=== PATIENT | female | born 2000 | race Caucasian/White ===

== ENCOUNTER 2021-12-03 10:12 | Emergency (ER) | payer BC, SELFPAY ==
[2021-12-03 10:20] VITALS: BP 134/90; PULSE 81; RESP 14; TEMP 36.9; O2SAT 100; BMI 22.3
--- NOTE | 2021-12-03 10:58 | ED_ITS ---
HPI - General Adult General Chief complaint: Ear/Nose/Throat Problem Stated complaint: Flu like symptoms Time Seen by Provider: 12/03/21 10:15 History of Present Illness HPI narrative: This 21-year-old female comes in reporting pain and redness behind her left ear. This is been present for about 5 days. She does not report any hearing changes. She does have some nasal congestion but no fevers or cough. She also stated that she has had some mild constipation lately and had 3 bowel movements recently with small harder stool. After 1 of these bowel movements she did wipe some blood on the toilet paper. Related Data Home Medications Medication Instructions Recorded Confirmed Oral control 12/03/21 dextroamphetamine-amphetamine ER PO 12/03/21 20 mg 24hr capsule,extend release escitalopram oxalate 10 mg tablet mg 12/03/21 Previous Rx's Medication Instructions Recorded amoxicillin 500 mg capsule 500 mg PO TID 10 days #30 caps 12/03/21 Allergies Allergy/AdvReac Type Severity Reaction Status Date / Time No Known Drug Allergies Allergy Verified 12/03/21 10:38 Review of Systems Status of ROS: Reports: 10 or more systems reviewed and unremarkable except as noted in History and below Narrative: Constitutional: No fevers, no weight gain or loss. Eyes: No discharge. No vision changes. HENT: No congestion, no sore throat. Redness and pain behind the left ear overlying the mastoid process. Cardiovascular: No chest pain, no palpitations. Respiratory: No shortness of breath, no wheezes, no cough. Gastrointestinal: No abdominal pain, no vomiting, no diarrhea. Genitourinary: No dysuria, no hematuria. She is currently menstruating Musculoskeletal: Normal range of motion. Skin: No rashes, no pruritis. Neurological: No dizziness, weakness, sensory change, speech change. Endo/Heme/Allergies: No bruising or bleeding. No polydipsia. Pysch: no suicidality, no anxiety, no insomnia. All other systems reviewed and are negative. PFSH PFS Social History Smoking Status: Never smoker How often do you have a drink containing alcohol: never AUDIT-C Alcohol total score: 0 Non-prescribed substance use: denies use Exam Narrative: Exam Narrative: Constitutional: Well-developed, well-nourished, no acute distress. HEENT: Normocephalic, atraumatic. Left tympanic membrane and canal appear normal. There is erythema without swelling in the posterior portion of the left external ear overlying the mastoid process. Neck: Normal range of motion. Nontender. Supple. Heart: Regular. No murmurs. Normal rate. Intact distal pulses. Lungs: Clear to auscultation. No chest discomfort. No wheezes, rhonchi, or rales. Abdomen: Normal bowel sounds. Nontender. No rebound tenderness. Genitalia: Deferred. Back: No midline tenderness. Normal range of motion. Extremities: Normal range of motion. No injury. Skin: Intact. No rash. Warm. No erythema or pallor. Neurologic: No altered sensation. No weakness. Alert and oriented. Psychiatric: No suicidality. No anxiety or depression. No insomnia. Nursing notes and vitals signs are reviewed. Const: Vital Signs, click to edit/add: Vital Signs - 24 hr 12/03/21 10:20 Temperature 98.4 F Pulse Rate [Pulse Oximeter] 81 Respiratory Rate 14 Blood Pressure [Ri ght Upper Arm] 134/90 H Pulse Oximetry 100 Oxygen Delivery Me thod Room Air Course Vital Signs Vital signs: Initial Vital Signs Temperature 98.4 F 12/03/21 10:20 Temperature Source Temporal Artery Scan 12/03/21 10:20 Pulse Rate 81 12/03/21 10:20 Respiratory Rate 14 12/03/21 10:20 Blood Pressure 134/90 H 12/03/21 10:20 Blood Pressure Mean 104 12/03/21 10:20 Blood Pressure Position Sitting 12/03/21 10:20 Pulse Oximetry 100 12/03/21 10:20 Oxygen Delivery Method 12/03/21 10:20 Vital Signs Temperature 98.4 F 12/03/21 10:20 Pulse Rate 81 12/03/21 10:20 Respiratory Rate 14 12/03/21 10:20 Blood Pressure 134/90 H 12/03/21 10:20 Pulse Oximetry 100 12/03/21 10:20 Oxygen Delivery Method 12/03/21 10:20 Temperature 98.4 F 12/03/21 10:20 Pulse Rate 81 12/03/21 10:20 Respiratory Rate 14 12/03/21 10:20 Blood Pressure 134/90 H 12/03/21 10:20 Pulse Oximetry 100 12/03/21 10:20 Oxygen Delivery Method 12/03/21 10:20 Medical Decision Making MDM Narrative Medical decision making narrative: This patient has pain behind the left ear as described above. She states that she had a cholesteatoma with surgery 3 or 4 months ago. This was on her right ear. She is following with a patient transition specialist. These symptoms on the left side and feel differently than the cholesteatoma. Her exam appears normal except for some erythema in the area described. This could be a cellulitis or possible mastoiditis. I did discuss lab and imaging options which the patient declined at this time in a process of shared decision making. She did receive a prescription for amoxicillin. As for the blood on the toilet paper, again the patient declined any further studies at this time. It seems more likely coming from an anal fissure or hemorrhoid as she has had some more difficult stools recently. She does not know of any family history of colon problems. I advised her to look for repeated blood. A colonoscopy or flexible sigmoidoscopy would be the best assessment for these findings especially if recurrent. Discharge Plan Discharge Clinical Impression: Cellulitis Patient Disposition: Home, Self-Care Condition: Stable Instructions: Cellulitis (ED) Additional Instructions: Take medication as prescribed. [facility]. If blood on the toilet paper is recurrent follow-up with primary physician or return to emergency department. Prescriptions: New amoxicillin 500 mg capsule 500 mg PO TID 10 Days Qty: 30 0RF No Action dextroamphetamine-amphetamine 20 mg capsule,extended release 24hr PO Label Comments: Take 1 capsule by mouth in the morning escitalopram oxalate 10 mg tablet Label Comments: Take 1 tablet by mouth daily; Take with one, 20 mg tablet for total dose of 30 mg daily Oral control Follow Up/Referrals: Dalia Mooney MD [Primary Care Provider] - Stand Alone Forms: [facility] Info Instructions
[2021-12-03 11:12] VITALS: BP 134/90; PULSE 81; RESP 14; TEMP 36.9
== END 2021-12-03 11:13 | disposition home or self-care (01) ==
PROVIDERS: Emergency Provider Emergency Medicine Emergency Medical Services; PCP Family Medicine
DX: H60.12 Cellulitis of left external ear (principal)
CPT/HCPCS: 99282; 99283; 99284

== ENCOUNTER 2021-12-19 15:34 | Emergency (ER) | payer BC, SELFPAY ==
[2021-12-19 15:37] VITALS: BP 132/89; PULSE 99; RESP 18; TEMP 36.8; O2SAT 98; BMI 22.6
--- NOTE | 2021-12-19 16:51 | ED.ABDPAIN ---
HPI - Abdominal Pain General Chief Complaint: Abdominal Pain Stated Complaint: Abdominal pain and constipation Time Seen by Provider: 12/19/21 16:37 History of Present Illness HPI narrative: This 21-year-old female comes in reporting crampy type abdominal pain over the past couple weeks. She states that she has had some constipation related to this. She states that her pain is more located in her lower abdomen when it occurs. She reports that the pain seems to be better when she is up and about and moving. She does report some increased urinary frequency. She wonders if she might be also. Related Data Home Medications Medication Instructions Recorded Confirmed Oral control 12/03/21 dextroamphetamine-amphetamine ER PO 12/03/21 20 mg 24hr capsule,extend release escitalopram oxalate 10 mg tablet mg 12/03/21 Previous Rx's Medication Instructions Recorded amoxicillin 500 mg capsule 500 mg PO TID 10 days #30 caps 12/03/21 ketorolac 10 mg tablet 10 mg PO Q8H 5 days #15 tabs 12/19/21 Allergies Allergy/AdvReac Type Severity Reaction Status Date / Time No Known Drug Allergies Allergy Verified 12/03/21 10:38 Review of Systems Status of ROS Reports: 10 or more systems reviewed and unremarkable except as noted in History and below Narrative Constitutional: No fevers, no weight gain or loss. Eyes: No discharge. No vision changes. HENT: No congestion, no sore throat, no ear pain. Cardiovascular: No chest pain, no palpitations. Respiratory: No shortness of breath, no wheezes, no cough. Gastrointestinal: No vomiting, no diarrhea. Abdominal pain as described above. Genitourinary: No hematuria. Increased urinary frequency. Musculoskeletal: Normal range of motion. Skin: No rashes, no pruritis. Neurological: No dizziness, weakness, sensory change, speech change. Endo/Heme/Allergies: No bruising or bleeding. No polydipsia. Pysch: no suicidality, no anxiety, no insomnia. All other systems reviewed and are negative. PFSH PFSH Social History Smoking Status: Never smoker How often do you have a drink containing alcohol: never AUDIT-C Alcohol total score: 0 Non-prescribed substance use: denies use Exam Narrative: Exam Narrative: Constitutional: Well-developed, well-nourished, no acute distress. HEENT: Normocephalic, atraumatic. Neck: Normal range of motion. Nontender. Supple. Heart: Regular. No murmurs. Normal rate. Intact distal pulses. Lungs: Clear to auscultation. No chest discomfort. No wheezes, rhonchi, or rales. Abdomen: Normal bowel sounds. Diffuse tenderness in the lower abdomen. No rebound tenderness. Genitalia: Deferred. Back: No midline tenderness. Normal range of motion. Extremities: Normal range of motion. No injury. Skin: Intact. No rash. Warm. No erythema or pallor. Neurologic: No altered sensation. No weakness. Alert and oriented. Psychiatric: No suicidality. No anxiety or depression. No insomnia. Nursing notes and vitals signs are reviewed. Const: Vital Signs, click to edit/add: Vital Signs - 24 hr 12/19/21 15:37 Temperature 98.3 F Pulse Rate [Right Pulse Oximeter] 99 Respiratory Rate 18 Blood Pressure [Ri ght Upper Arm] 132/89 Pulse Oximetry 98 Oxygen Delivery Me thod Room Air Course Vital Signs Vital signs: Initial Vital Signs Temperature 98.3 F 12/19/21 15:37 Temperature Source Temporal Artery Scan 12/19/21 15:37 Pulse Rate 99 12/19/21 15:37 Respiratory Rate 18 12/19/21 15:37 Blood Pressure 132/89 12/19/21 15:37 Blood Pressure Mean 103 12/19/21 15:37 Blood Pressure Position Sitting 12/19/21 15:37 Pulse Oximetry 98 12/19/21 15:37 Oxygen Delivery Method 12/19/21 15:37 Vital Signs Temperature 98.3 F 12/19/21 15:37 Pulse Rate 99 12/19/21 15:37 Respiratory Rate 18 12/19/21 15:37 Blood Pressure 132/89 12/19/21 15:37 Pulse Oximetry 98 12/19/21 15:37 Oxygen Delivery Method 12/19/21 15:37 Temperature 98.3 F 12/19/21 15:37 Pulse Rate 99 12/19/21 15:37 Respiratory Rate 18 12/19/21 15:37 Blood Pressure 132/89 12/19/21 15:37 Pulse Oximetry 98 12/19/21 15:37 Oxygen Delivery Method 12/19/21 15:37 MDM - Abdominal Pain MDM Narrative Medical decision making narrative: This patient comes in reporting lower abdominal pain as described above. She did take Dulcolax earlier today and states that she did have a good soft and rather large bowel movement. On exam her abdomen is not showing signs of abnormal bowel sounds or having rebound tenderness. She has some diffuse but rather mild pain in her lower abdomen. Urinalysis is negative for infection and . Additionally lab results returned with normal findings. Her white count, hemoglobin, electrolytes, and kidney function are all in normal range. I did discuss imaging options which the patient declined in a process of shared decision making. She would prefer to go to her primary physician with her boyfriend if she was going to have further imaging testing such as a pelvic ultrasound. She did state that she increased her Lexapro dose a couple weeks ago and her psychiatrist stated that this may have contributed to her constipation. She is now reverted back to her previous dose and states that she is interested in following up with that physician to consider a different antidepressant. Lab Data Labs: Lab Results 12/19/21 12/19/21 12/19/21 Range/Units 16:50 16:50 17:08 WBC 5.52 (4.50-11.00) K/uL RBC 4.61 (4.00-5.20) m/uL Hgb 12.3 (12.0-16.0) gm/dL Hct 38.6 (33.0-51.0) % MCV 84 (80-100) fL MCH 27 (26-34) pg MCHC 32 (32-36) gm/dL RDW Coeff of Hunter 13.6 (11.5-15.5) % Plt Count 288 (140-440) K/uL Neut % (Auto) 51.6 (42.0-72.0) % Lymph % (Auto) 37.1 (20-44) % Borden % (Auto) 8.7 (0.0-11.0) % Eos % (Auto) 2.2 (0.0-7.0) % Baso % (Auto) 0.4 (0.0-3.0) % Neut # (Auto) 2.85 (1.7-7.0) K/uL Lymph # (Auto) 2.05 (0.90-2.90) K/uL Borden # (Auto) 0.50 (0.00-0.90) K/UL Eos # (Auto) 0.12 (0.00-0.50) K/uL Baso # (Auto) 0.02 (0.00-0.30) K/uL Abs Immat Gran (auto) 0.00 (0.00-0.30) K/uL Sodium (135-149) mmol/L Potassium (3.6-5.1) mmol/L Chloride (96-114) mmol/L Carbon Dioxide (20-32) mmol/L BUN (5-24) mg/dL Creatinine (0.5-1.5) mg/dL Estimated Creat Clear Estimated GFR ml/min Glucose (60-115) mg/dL Calcium (8.4-10.6) mg/dL Urine Color Yellow (Yellow) Urine Appearance Clear (Clear) Urine pH 6.0 (5.0-8.5) Ur Specific [place] >= 1.030 (1.000-1.030) Urine Protein Negative (Negative) Urine Glucose (UA) Negative (Negative) Urine Ketones Negative (Negative) Urine Blood Negative (Negative) Urine Nitrite Negative (Negative) Urine Bilirubin Negative (Negative) Urine Urobilinogen 0.2 (0.2-1.0) Ur Leukocyte Esterase Negative (Negative) Urine RBC 0-2 (0-2) Urine WBC 0-2 (0-5) Ur Squamous Epith Cells Few (None-Few) Urine Bacteria None (None) Urine HCG, Qual Negative (Negative) 12/19/21 Range/Units 17:08 WBC (4.50-11.00) K/uL RBC (4.00-5.20) m/uL Hgb (12.0-16.0) gm/dL Hct (33.0-51.0) % MCV (80-100) fL MCH (26-34) pg MCHC (32-36) gm/dL RDW Coeff of Hunter (11.5-15.5) % Plt Count (140-440) K/uL Neut % (Auto) (42.0-72.0) % Lymph % (Auto) (20-44) % Borden % (Auto) (0.0-11.0) % Eos % (Auto) (0.0-7.0) % Baso % (Auto) (0.0-3.0) % Neut # (Auto) (1.7-7.0) K/uL Lymph # (Auto) (0.90-2.90) K/uL Borden # (Auto) (0.00-0.90) K/UL Eos # (Auto) (0.00-0.50) K/uL Baso # (Auto) (0.00-0.30) K/uL Abs Immat Gran (auto) (0.00-0.30) K/uL Sodium 140 (135-149) mmol/L Potassium 4.2 (3.6-5.1) mmol/L Chloride 103 (96-114) mmol/L Carbon Dioxide 27 (20-32) mmol/L BUN 13 (5-24) mg/dL Creatinine 0.6 (0.5-1.5) mg/dL Estimated Creat Clear 140.01 Estimated GFR 132 ml/min Glucose 86 (60-115) mg/dL Calcium 9.3 (8.4-10.6) mg/dL Urine Color (Yellow) Urine Appearance (Clear) Urine pH (5.0-8.5) Ur Specific [place] (1.000-1.030) Urine Protein (Negative) Urine Glucose (UA) (Negative) Urine Ketones (Negative) Urine Blood (Negative) Urine Nitrite (Negative) Urine Bilirubin (Negative) Urine Urobilinogen (0.2-1.0) Ur Leukocyte Esterase (Negative) Urine RBC (0-2) Urine WBC (0-5) Ur Squamous Epith Cells (None-Few) Urine Bacteria (None) Urine HCG, Qual (Negative) Discharge Plan Discharge Clinical Impression: Abdominal pain, Constipation Condition: Stable Instructions: Abdominal Pain (ED) Additional Instructions: Take medication as needed and indicated. Follow up with primary physician for further evaluation and treatment as needed. Return if worsening. Prescriptions: New ketorolac 10 mg tablet 10 mg PO Q8H 5 Days Qty: 15 0RF No Action dextroamphetamine-amphetamine 20 mg capsule,extended release 24hr PO Label Comments: Take 1 capsule by mouth in the morning escitalopram oxalate 10 mg tablet Label Comments: Take 1 tablet by mouth daily; Take with one, 20 mg tablet for total dose of 30 mg daily Oral control amoxicillin 500 mg capsule 500 mg PO TID 10 Days Qty: 30 0RF Follow Up/Referrals: Dalia Mooney MD [Primary Care Provider] - Stand Alone Forms: [facility] Info Instructions
[2021-12-19 17:23] LABS: Appearance Urine Clear (Clear); Bilirubin Urine Negative (Negative); Blood Urine Negative (Negative); Color Urine Yellow (Yellow); Glucose Urine Negative (Negative); Ketones Urine Negative (Negative); Leukocyte Esterase Urine Negative (Negative); Nitrite Urine Negative (Negative); Protein Urine Negative (Negative); Specific Gravity Urine >= 1.030 (1.000-1.030); Urobilinogen Urine 0.2 (0.2-1.0)
[2021-12-19 17:31] LABS: Basophils Absolute Auto 0.02 K/uL (0.00-0.30); Basophils Percent Auto 0.4 % (0.0-3.0); Eosinophils Absolute Auto 0.12 K/uL (0.00-0.50); Eosinophils Percent Auto 2.2 % (0.0-7.0); Hematocrit 38.6 % (33.0-51.0); Hemoglobin* 12.3 gm/dL (12.0-16.0); Lymphocytes Absolute Auto 2.05 K/uL (0.90-2.90); Lymphocytes Percent Auto 37.1 % (20-44); Mean Corpuscular HGB Conc 32 gm/dL (32-36); Mean Corpuscular Hemoglobin 27 pg (26-34); Mean Corpuscular Volume 84 fL (80-100); Monocytes Percent Auto 8.7 % (0.0-11.0); Neutrophils Absolute Auto 2.85 K/uL (1.7-7.0); Neutrophils Percent Auto 51.6 % (42.0-72.0); Platelet Count* 288 K/uL (140-440); RDW Coefficient of Variation % 13.6 % (11.5-15.5); Red Blood Count 4.61 m/uL (4.00-5.20); White Blood Count* 5.52 K/uL (4.50-11.00)
[2021-12-19 17:36] LABS: Chloride* 103 mmol/L (96-114)
[2021-12-19 17:37] LABS: Potassium* 4.2 mmol/L (3.6-5.1); Sodium* 140 mmol/L (135-149)
[2021-12-19 17:39] LABS: Creatinine* 0.6 mg/dL (0.5-1.5); Est. Creatinine Clearance* 140.01; Estimated Glomerular Filt Rate 132 ml/min
[2021-12-19 17:40] LABS: Blood Urea Nitrogen* 13 mg/dL (5-24); Calcium* 9.3 mg/dL (8.4-10.6); Carbon Dioxide* 27 mmol/L (20-32); Glucose* 86 mg/dL (60-115)
[2021-12-19 17:42] LABS: RBC Urine 0-2 (0-2); Squamous Epithelial Cell Urine Few (None-Few); WBC Urine 0-2 (0-5)
[2021-12-19 17:55] LABS: Slide Review Reflex No
[2021-12-19 18:36] LABS: Ur HCG Qualitative* Negative (Negative)
== END 2021-12-19 19:14 | disposition home or self-care (01) ==
PROVIDERS: Emergency Provider Emergency Medicine Emergency Medical Services; PCP Family Medicine
DX: K59.00 Constipation, unspecified (principal)
CPT/HCPCS: 36415; 80048; 81001; 81025; 85025; 99283; 99284